=== PATIENT | female | born 1970 | race American Indian/Alaskan Native ===

== ENCOUNTER 2020-12-08 10:12 | Outpatient (CLI) | payer OTHER ==
--- NOTE | 2020-12-08 12:04 | XRay Report ---
BILATERAL FOOT 4 VIEW(S) INDICATION / CLINICAL INFORMATION: LEFT/RIGHT FOOT PAIN COMPARISON: None available. FINDINGS: BONES / JOINT(S): No acute fracture or subluxation. Minimal bilateral 1st MTP degenerative arthrosis. SOFT TISSUES: No significant abnormality. ADDITIONAL FINDINGS: None. Signer Name: Regine Farooq MD Signed: 12/08/2020 11:59 AM Workstation Name: [id number]
--- NOTE | 2020-12-08 12:05 | XRay Report ---
BILATERAL HAND 4 VIEW(S) INDICATION / CLINICAL INFORMATION: RIGHT/LEFT HAND PAIN COMPARISON: None available. FINDINGS: BONES / JOINT(S): No acute fracture or subluxation. Mild degenerative arthrosis of the interphalangea l joint of the right thumb. No osseous erosions. SOFT TISSUES: No significant abnormality. ADDITIONAL FINDINGS: None. Signer Name: Regine Farooq MD Signed: 12/08/2020 12:00 PM Workstation Name: [id number]
== END 2020-12-08 10:13 | disposition home or self-care (01) ==
LOC: XRAY 10:12
PROVIDERS: ATTEND Internal Medicine
DX: M19.042 Primary osteoarthritis, left hand (principal); M19.041 Primary osteoarthritis, right hand; M19.072 Primary osteoarthritis, left ankle and foot; M19.071 Primary osteoarthritis, right ankle and foot